=== PATIENT | male | born 1950 | race American Indian/Alaskan Native ===

== ENCOUNTER 2017-11-07 19:06 | Emergency (ER) | payer MEDICARE ==
[2017-11-07 19:26] VITALS: BP 129/76
[2017-11-07] MEDS ORDERED: BOOSTRIX IM ONE (20:01)
--- NOTE | 2017-11-07 20:03 | Emergency Department Report ---
HPI - General Chief Complaint: Fall Time Seen by Provider: 11/07/17 19:35 - HPI HPI: 67-year-old male presents to the emergency department by EMS from home after he had some type of a fall causing a small laceration to the left lateral eyebrow. The patient is currently awake but does appear intoxicated and admits to drinking 3 shots of vodka and grapefruit. He denies drinking every day or any history of alcoholism. He admits to a past medical history of hypertension but does not take any medications. He has not been up- to-date with his tetanus. The patient is unsure how he fell and only remembers being in the ambulance on the way to the hospital. He has no complaints at this time. He is not on any blood thinners. ED Past Medical Hx - Past Medical History Previous Medical History?: Yes Hx Hypertension: Yes - Surgical History Past Surgical History?: No - Social History Smoking Status: Current Some Day Smoker Substance Use Type: Alcohol ED Review of Systems ROS: Stated complaint: ETOH Other details as noted in HPI Comment: All other systems reviewed and negative Constitutional: denies: chills, fever Eyes: denies: eye pain, eye discharge, vision change ENT: denies: ear pain, throat pain Respiratory: denies: cough, shortness of breath, wheezing Cardiovascular: syncope (questionable). denies: chest pain, palpitations Gastrointestinal: denies: abdominal pain, nausea, diarrhea Genitourinary: denies: urgency, dysuria Musculoskeletal: denies: back pain, joint swelling, arthralgia Skin: other (laceration). denies: rash Neurological: denies: weakness, numbness Physical Exam - Physical Exam Vital Signs: Vital Signs 11/07/17 11/07/17 11/07/17 19:11 19:15 19:20 Temperature 98.1 F Pulse Rate 98 H Respiratory 18 Rate Blood Pressure 129/84 129/84 129/76 O2 Sat by Pulse 98 99 97 Oximetry Physical Exam: GENERAL: The patient is well-developed well-nourished. HENT: Normocephalic. Atraumatic. Patient has moist mucous membranes. EYES: Extraocular motions are intact. Pupils equal reactive to light bilaterally. NECK: Supple. Trachea is midline. CHEST/LUNGS: Clear to auscultation. There is no respiratory distress noted. HEART/CARDIOVASCULAR: Regular. There is no tachycardia. There is no murmur. ABDOMEN: Abdomen is soft, nontender. Patient has normal bowel sounds. There is no abdominal distention. SKIN: Skin is warm and dry. There is a 1.5 cm transverse laceration to the left eyebrow and lateral to the left eyebrow. Mild venous oozing. NEURO: The patient is awake, alert, and oriented but he does appear intoxicated.. The patient is cooperative. The patient has no focal neurologic deficits. The patient has normal speech. Cranial nerves II through XII grossly intact. MUSCULOSKELETAL: There is no tenderness or deformity. There is no limitation range of motion. There is no evidence of acute injury. ED Course Vital Signs 11/07/17 11/07/17 11/07/17 19:11 19:15 19:20 Temperature 98.1 F Pulse Rate 98 H Respiratory 18 Rate Blood Pressure 129/84 129/84 129/76 O2 Sat by Pulse 98 99 97 Oximetry - Consultations Consultation #1: 11/07/17 20:36 The patient was accepted to [facility] by the trauma surgeon, Dr. Hidalgo, to go to the main emergency department. ED Medical Decision Making - Lab Data Result diagrams: 11/07/17 19:48 11/07/17 19:48 - EKG Data -: EKG Interpreted by Vt EKG shows normal: sinus rhythm (with PVCs), axis, intervals (prolonged QTC), QRS complexes, ST-T waves Rate: tachycardia (105 bpm) - EKG Data When compared to previous EKG there are: previous EKG unavailable Interpretation: other (sinus tachycardia at 105 bpm with PVCs, long QTC) - Radiology Data Radiology results: report reviewed PROCEDURE: CT HEAD/BRAIN WO CON TECHNIQUE: Computerized tomography of the head was performed without contrast material. HISTORY: Fall COMPARISON: No prior studies are available for comparison. FINDINGS: Skull and scalp: There irregularity of the lateral wall of left orbit. Mild degree soft tissue swelling is noted in the left supra orbital region.. Paranasal sinuses: Normal. Ventricles and subarachnoid spaces: Are prominent consistent with cerebral atrophy appropriate for patient's age. There is evidence of subarachnoid and subdural hemorrhage in the left frontal region extending into the left sylvian fissure. Mild degree subarachnoid hemorrhage is also noted in the left temporal region. There is no shift of midline structures.. Cerebrum: No evidence of hemorrhage, acute infarction or mass . Cerebellum and brainstem: No evidence of hemorrhage, acute infarction or mass. Vasculature: Atherosclerotic calcification is noted involving bilateral internal carotid arteries.. Comments: None. IMPRESSION: Acute subarachnoid and subdural hemorrhage of mild degree predominantly involving left frontal region with minimal degree subarachnoid hemorrhage in the left temporal region. Fracture involving the lateral wall of left orbit is most likely of acute nature. Findings of this critical report were conveyed to Dr. Pratt at 8:13 p.m. EST on 11/07/2017. Transcribed By: [facility]ict[place] By: ELVIA SERRANO Electronically Authenticated By: ELVIA SERRANO Signed Date/Time: 11/07/172017 PROCEDURE: CT CERVICAL SPINE WO CON TECHNIQUE: Computerized tomography of the cervical spine was performed from the skull base to T1 without contrast material. HISTORY: Fall COMPARISON: No prior studies are available for comparison. FINDINGS: There is loss of cervical lordosis. Vertebral height is within normal limits. An acute fracture is not identified. Visualized lung apices are clear. C1-2: No significant abnormality. C2-3: No significant abnormality. C3-4: No significant abnormality. C4-5: No significant abnormality. C5-6: Moderate degree broad-based disc osteophyte complex is noted causing mild degree spinal canal stenosis. Mild degree bilateral neural foraminal stenosis is noted secondary to uncovertebral and facet degenerative changes.. C6-7: Mild degree broad-based disc osteophyte complex is noted resulting in mild degree spinal canal stenosis. There is also mild degree bilateral neural foraminal stenosis secondary to uncovertebral degenerative changes.. C7-T1: No significant abnormality. Other: No additional findings. IMPRESSION: Loss of cervical lordosis is most likely secondary to spasm or positioning. No acute fracture Multilevel cervical spondylosis as described above.. Transcribed By: [facility] [place]ictated By: ELVIA SERRANO Electronically Authenticated By: ELVIA SERRANO Signed Date/Time: 11/07/172026 - Medical Decision Making Patient presented intoxicated with a recent fall and a left-sided facial laceration. CT shows a mild left-sided subarachnoid and subdural bleed but no midline shift. He has been a GCS of 15 throughout his ED course. Labs are mostly unremarkable except for mild hypokalemia and a blood alcohol level of 0.38. Patient accepted for transfer to [facility] to see the trauma team. The patient's later called and was updated and says that the incident occurred at a local shopping store. - Differential Diagnosis skull fracture, brain bleed, laceration, abrasion, alcohol intoxication Critical Care Time: No Critical care attestation.: If time is entered above; I have spent that time in minutes in the direct care of this critically ill patient, excluding procedure time. ED Disposition Clinical Impression: Subarachnoid hemorrhage, Subdural hematoma Eyebrow laceration Qualifiers: Encounter type: initial encounter Laterality: left Qualified Code(s): S01.112A - Laceration without foreign body of left eyelid and periocular area, initial encounter Alcohol intoxication Qualifiers: Complication of substance-induced condition: uncomplicated Qualified Code(s): F10.920 - Alcohol use, unspecified with intoxication, uncomplicated Disposition: DC/TX-70 ANOTHER TYPE HLTHCARE Is pt being admited?: No Condition: Fair Referrals: REYNALDO SEVILLA MD [Primary Care Provider] - 3-5 Days Time of Disposition: 21:23
[2017-11-07 20:09] LABS: Hematocrit 39.6 % (35.5-45.6); Hemoglobin 13.6 gm/dl (11.8-15.2); Mean Corpuscular HGB Conc 34 % (32-34); Mean Corpuscular Hemoglobin 33 pg (28-32); Mean Corpuscular Volume 95 fl (84-94); Red Blood Count 4.16 M/mm3 (3.65-5.03); Red Cell Distribution Width 17.4 % (13.2-15.2)
[2017-11-07 20:22] LABS: Alanine Aminotransferase 50 units/L (7-56); Albumin 3.9 g/dL (3.9-5); BUN/Creatinine Ratio 9; Blood Urea Nitrogen 10 mg/dL (9-20); Calcium 8.1 mg/dL (8.4-10.2); Hemolysis Index 40
--- NOTE | 2017-11-07 20:22 | Cat Scan Report ---
FINAL REPORT PROCEDURE: CT HEAD/BRAIN WO CON TECHNIQUE: Computerized tomography of the head was performed without contrast material. HISTORY: Fall COMPARISON: No prior studies are available for comparison. FINDINGS: Skull and scalp: There irregularity of the lateral wall of left orbit. Mild degree soft tissue swelling is noted in the left supra orbital region.. Paranasal sinuses: Normal. Ventricles and subarachnoid spaces: Are prominent consistent with cerebral atrophy appropriate for patient's age. There is evidence of subarachnoid and subdural hemorrhage in the left frontal region extending into the left sylvian fissure. Mild degree subarachnoid hemorrhage is also noted in the left temporal region. There is no shift of midline structures.. Cerebrum: No evidence of hemorrhage, acute infarction or mass . Cerebellum and brainstem: No evidence of hemorrhage, acute infarction or mass. Vasculature: Atherosclerotic calcification is noted involving bilateral internal carotid arteries.. Comments: None. IMPRESSION: Acute subarachnoid and subdural hemorrhage of mild degree predominantly involving left frontal region with minimal degree subarachnoid hemorrhage in the left temporal region. Fracture involving the lateral wall of left orbit is most likely of acute nature. Findings of this critical report were conveyed to Dr. Pratt at 8:13 p.m. EST on 11/07/2017.
[2017-11-07 20:30] LABS: Partial Thromboplastin Time 25.8 Sec. (24.2-36.6)
--- NOTE | 2017-11-07 20:31 | Cat Scan Report ---
FINAL REPORT PROCEDURE: CT CERVICAL SPINE WO CON TECHNIQUE: Computerized tomography of the cervical spine was performed from the skull base to T1 without contrast material. HISTORY: Fall COMPARISON: No prior studies are available for comparison. FINDINGS: There is loss of cervical lordosis. Vertebral height is within normal limits. An acute fracture is not identified. Visualized lung apices are clear. C1-2: No significant abnormality. C2-3: No significant abnormality. C3-4: No significant abnormality. C4-5: No significant abnormality. C5-6: Moderate degree broad-based disc osteophyte complex is noted causing mild degree spinal canal stenosis. Mild degree bilateral neural foraminal stenosis is noted secondary to uncovertebral and facet degenerative changes.. C6-7: Mild degree broad-based disc osteophyte complex is noted resulting in mild degree spinal canal stenosis. There is also mild degree bilateral neural foraminal stenosis secondary to uncovertebral degenerative changes.. C7-T1: No significant abnormality. Other: No additional findings. IMPRESSION: Loss of cervical lordosis is most likely secondary to spasm or positioning. No acute fracture Multilevel cervical spondylosis as described above..
[2017-11-07] MEDS ORDERED: K-DUR PO ONE (21:20)
[2017-11-07 21:43] LABS: Band Neutrophils # (Manual) 0.1 K/mm3; Eosinophils % (Manual) 0 % (0.0-4.3); Total Cells Counted 100
[2017-11-07 21:46] LABS: Anisocytosis 1+; Macrocytosis 1+; Platelet Estimate Consistent w Auto; Target Cells 1+
[2017-11-07 21:47] LABS: Platelet Count 99 K/mm3 (140-440)
== END 2017-11-07 21:23 | disposition other institution (70) ==
LOC: ED 19:06
DX: S06.5X9A Traumatic subdural hemorrhage with loss of consciousness of unspecified duration, initial encounter (principal); S06.6X9A Traumatic subarachnoid hemorrhage with loss of consciousness of unspecified duration, initial encounter; S01.112A Laceration without foreign body of left eyelid and periocular area, initial encounter; F10.920 Alcohol use, unspecified with intoxication, uncomplicated; I10 Essential (primary) hypertension; F17.200 Nicotine dependence, unspecified, uncomplicated; W17.89XA Other fall from one level to another, initial encounter; Y93.89 Activity, other specified; Y92.89 Other specified places as the place of occurrence of the external cause; Y99.8 Other external cause status
CPT/HCPCS: 36415; 70450; 72125; 80053; 82550; 85007; 85025; 85610; 85730; 90471; 90715; 99285; G0480; 80320